=== PATIENT | female | born 1990 | race Caucasian/White ===

== ENCOUNTER 2016-05-17 09:51 | Emergency (ER) | payer BC, MEDICAID ==
--- NOTE | ~2016-05-17 | ER ---
PATIENT'S NAME: RAYNE CARLOS [facility] AGE: 25 Y [address] ROOM: [place] [address] LOCATION: [facility] ADMIT DATE: 05/17/2016 ER/Outpatient Report DISCHARGE DATE: 05/17/2016 FAMILY PHYSICIAN: Edwardo Goel MD ATTENDING PHYSICIAN: Jackeline Abbott Time of Arrival: 0955 hours. HISTORY OF PRESENT ILLNESS: The patient is a 25-year-old female who came to the ER with a primary complaint of abdominal pain. She described the pain as an ache in nature on the left side pointing more to her flank that this morning radiated to the back. She says this has been present for the last four days or so and has just worsened over the weekend. The patient does state she is currently on her menses and thought this might be just related to her menstrual cramping; however she does have a history of kidney stones as well as polycystic kidney disease. So just with the location of the pain, she wanted to come and get checked out. Does state her menses is heavier than usual and that she is clotting as well with this. She was a little nauseous, and vomited once over the weekend, but was able to tolerate liquids this morning without any vomiting. Denies any fevers or chills. No diarrhea or constipation. No urinary symptoms and when asked about any vaginal discharge, she states that she is unable to tell if there is anything different secondary to her being on menses; however, she is sexually active and does not use condoms for protection. She is not on any other forms of control at the time, so is unsure if she is or has an STD. The patient states she has a tried a Tylenol and heating pads at home which was working up until this morning. Does not know of anything that makes the pain worse and the patient does not think that this is the same type of pain that she has had with her previous kidney stones. Otherwise, the patient denies headache, vision change, chest pain, shortness of breath, lower extremity swelling, rashes. Second complaint, the patient has was a recent lung mass removal that was benign on April 14 and the surgery sites, there was a little redness over one, so she is concerned that it was infected, but denies any discharge, increased erythema, or pain at that site. PAST MEDICAL HISTORY: Documented in the medical record and reviewed by me. SOCIAL HISTORY: Documented in the medical record and reviewed by me. MEDICATIONS: Documented in the medical record and reviewed by me. PATIENT'S NAME: RAYNE CARLOS [facility] AGE: 25 Y [address] ROOM: [place] [address] LOCATION: [facility] ADMIT DATE: 05/17/2016 ER/Outpatient Report DISCHARGE DATE: 05/17/2016 FAMILY PHYSICIAN: Edwardo Goel MD ATTENDING PHYSICIAN: Jackeline Abbott ALLERGIES: DOCUMENTED IN THE MEDICAL RECORD AND REVIEWED BY ME. REVIEW OF SYSTEMS: A complete and comprehensive review of systems was completed and was negative except as noted in the HPI above. LABORATORY DATA: The patient's urine test was negative and urine GC is still pending. CBC was within normal limits as was her CMP. UA did show trace blood, but was otherwise normal and the patient underwent an abdominal CT with stone protocol which was negative for any acute findings. Did show no polycystic kidney disease. This was a verbal read per Radiology. Final read is still pending. PHYSICAL EXAMINATION: GENERAL: The patient was in no acute distress. Alert and oriented x4. EXTREMITIES: She was able to move all extremities. CHEST: Her lungs are clear to auscultation bilaterally. The lateral right chest wall, there were three scars present from previous surgery. The distal one on the lateral midline, right chest wall did have a mild erythema, but was non warm to touch as compared to the surrounding tissue. There was no exudate. No induration. No fluctuance. No other signs of any infection and it was nontender to palpation. The patient did also have a very faintly erythematous macular rash, paraspinal bilaterally on her upper back. The patient does state that this was present after she received her epidural from her lung mass removal and has not changed. HEART: Regular rate and rhythm. No murmurs, rubs, gallops. Pulses were 2+ bilaterally. ABDOMEN: Normal in appearance. Soft, nontender to palpation. Bowel sounds present in all four quadrants. MUSCULOSKELETAL: Strength in 5/5 bilaterally and no pedal edema. IMPRESSION: Abdominal pain likely secondary to menstrual cramping. Prescription was given for 800 mg of Ibuprofen to take every 12 hours as needed for pain. Advised the patient she could take Tylenol. OKSANA HARDING MED STUDENT, RESIDENT FOR JACKELINE ABBOTT DO SLL/modl PATIENT'S NAME: RAYNE CARLOS [facility] AGE: 25 Y [address] ROOM: [place] [address] LOCATION: [facility] ADMIT DATE: 05/17/2016 ER/Outpatient Report DISCHARGE DATE: 05/17/2016 FAMILY PHYSICIAN: Edwardo Goel MD ATTENDING PHYSICIAN: Jackeline Abbott /[id number] ATTENDING ADDENDUM: I saw and evaluated the patient. I have discussed with the resident, agree with the resident's findings and plan and agree with the documented note above. AJCKELINE ABBOTT DO d: 05/17/16 2211 t: 05/27/16 1929, OUTPATIENT REPORT
--- NOTE | ~2016-05-17 | ER ---
PATIENT'S NAME: RAYNE CARLOS [facility] AGE: 25 Y [address] ROOM: [place] [address] LOCATION: [facility] ADMIT DATE: 05/17/2016 ER/Outpatient Report DISCHARGE DATE: 05/17/2016 FAMILY PHYSICIAN: Edwardo Goel MD ATTENDING PHYSICIAN: Jackeline Abbott CONTINUATION: The patient was given a prescription for ibuprofen 800 mg that she could take every twelve hours as needed for pain. She can alternate this with Tylenol as necessary. Continue with heating pads and adequate hydration. The patient was advised to follow up with her primary care doctor in 2 to 3 days or sooner if necessary. CONDITION ON DISCHARGE: The patient was discharged home in stable condition. OKSANA BECERRIL MD RESIDENT FOR JACKELINE ABBOTT DO SLL/modl /[id number] ATTENDING ADDENDUM: I saw and evaluated the patient. I have discussed with the resident, agree with the resident's findings and plan and agree with the documented note above. JACKELINE ABBOTT DO d: 05/17/162041 t: 05/27/161933, OUTPATIENT REPORT
[2016-05-17 10:59] LABS: BILIRUBIN URINE NEGATIVE (NEGATIVE); BLOOD URINE 10 /UL (NEGATIVE); COLOR URINE YELLOW (YELLOW); GLUCOSE URINE NEGATIVE (NEGATIVE); KETONE URINE NEGATIVE (NEGATIVE); LEUKOCYTES URINE NEGATIVE /UL (NEGATIVE); NITRITE URINE NEGATIVE (NEGATIVE); PROTEIN URINE NEGATIVE (NEGATIVE); SPEC GRAVITY URINE 1.015 (1.003-1.035); UROBILINOGEN URINE NORMAL (NORMAL)
[2016-05-17 11:08] LABS: BASOPHIL % 0.6 %; EOSINOPHIL # 0.2 K/uL (0.0-0.5); EOSINOPHIL % 3.1 %; HEMATOCRIT 37.6 % (33.0-46.0); HEMOGLOBIN 12.5 g/dL (11.0-15.0); IMMATURE GRANULOCYTE % 0.2 %; LYMPHOCYTE # 1.6 K/uL (0.8-4.0); LYMPHOCYTE % 33.6 %; MCH 28.8 pg (27.0-34.0); MCHC 33.2 gm/dL (32.0-36.5); MCV 86.6 fl (83.0-98.0); MONOCYTE # 0.3 K/uL (0.0-1.0); MONOCYTE % 5.2 %; MPV 10.4 fl (9.4-12.4); NEUTROPHIL # (ANC) 2.8 K/uL (1.8-7.8); NEUTROPHIL % 57.3 %; NRBC % 0 /100WBC (0-0.00); PLATELET COUNT 206 K/uL (150-450); RBC 4.34 M/uL (3.50-5.00); RDW-CV 14.1 % (11.9-14.6); WBC 4.9 K/uL (4.0-11.0)
[2016-05-17 11:16] LABS: TURBIDITY URINE CLEAR (CLEAR)
[2016-05-17 11:18] LABS: AMORPHOUS URINE 1+ (NEGATIVE); BACTERIA URINE FEW (NEGATIVE); MUCUS URINE 1+ (NEGATIVE); RBC URINE 0-2 #/HPF (NEGATIVE); WBC URINE 0-2 #/HPF (NEGATIVE)
[2016-05-17 11:25] LABS: ALBUMIN 3.5 gm/dL (3.5-5.0); ALK PHOS 90 IU/L (33-138); ALT 14 IU/L (12-78); ANION GAP 8.8 (10.0-19.0); AST 11 IU/L (10-40); BLOOD UREA NITROGEN 14 mg/dL (6-24); CHLORIDE 105 mMol/L (96-110); CO2 30 mMol/L (22-32); CREATININE 0.8 mg/dL (0.5-1.1); ESTIMATED GFR (MDRD EQUATION) > 60; POTASSIUM 3.8 mMol/L (3.7-5.1); SODIUM 140 mMol/L (135-145); TOTAL BILIRUBIN 0.5 mg/dL (0.0-1.5); TOTAL PROTEIN 7.2 g/dL (6.0-8.4)
== END 2016-05-17 12:31 | disposition disaster alternative care site (69) ==
LOC: GMED 09:51
PROVIDERS: Emergency Medicine
DX: R10.9 Unspecified abdominal pain (principal)
CPT/HCPCS: J2405; J7030